=== PATIENT | female | born 1965 | race Caucasian/White ===

== ENCOUNTER 2017-12-03 11:29 | Outpatient (CLI) | payer BC | END 2017-12-03 23:59 | disposition home or self-care (01) | LOC: D.MAMMO 11:29 | DX: Z12.31 Encounter for screening mammogram for malignant neoplasm of breast (principal) ==

== ENCOUNTER 2018-04-18 14:34 | Emergency (ER) | payer BC | END 2018-04-18 15:44 | disposition left against medical advice (07) | LOC: D.ER 14:34 | DX: M54.9 Dorsalgia, unspecified (principal) ==

== ENCOUNTER → 2018-07-05 08:13 | Outpatient (CLI) | payer MEDICAID | END | disposition home or self-care (01) | LOC: D.RAD 08:00 | DX: R13.12 Dysphagia, oropharyngeal phase (principal) ==